=== PATIENT | male | born 1975 | race Caucasian/White ===

== ENCOUNTER 2016-12-29 18:09 | Emergency (ER) | payer MEDICARE, OTHER ==
[~2016-12-29] VITALS: Ht 180.3 cm; Wt 106.6 kg
[~2016-12-29 18:09] MED LIST: ATOR40TA PO; LORTA5 PO; ZOFR4TAB3 SL
[2016-12-29] MEDS ORDERED: SIMV20TA PO (18:37)
[2016-12-29 18:38] VITALS: BP 156/67; PULSE 85; RESP 18; TEMP 99.2; O2SAT 97
[2016-12-29 19:00] VITALS: BP 128/78; PULSE 65; RESP 20; O2SAT 95
[2016-12-29] MEDS ORDERED: MORPHINE SULFATE 4 MG/ML INJ IV PUSH ONE (19:15)
[2016-12-29] MEDS ORDERED: ONDANSETRON HCL 4 MG/2 ML VIAL IV PUSH ONE (19:15)
[2016-12-29] MEDS ORDERED: SODIUM CHLORIDE 0.9% FLUSH 10 ML FLUSH IVF PRN (19:15)
[2016-12-29 19:45] LABS: AUTOMATED NEUTROPHIL # 4.4 TH/MM3 (1.8-7.7); BASOPHIL % 0.4 % (0.0-2.0); EOSINOPHIL # 0.2 TH/MM3 (0-0.4); HEMATOCRIT 38.3 % (39.0-51.0); HEMO FLAGS DIFF FINAL; LYMPH % 28.3 % (9.0-44.0); LYMPHOCYTE # 2.2 TH/MM3 (1.0-4.8); MEAN CELL VOLUME 89.7 FL (80.0-100.0); MEAN CORPUSCULAR HEMOGLOBIN 31.6 PG (27.0-34.0); MEAN CORPUSCULAR HGB CONC 35.3 % (32.0-36.0); MONO % 11.1 % (0.0-8.0); NEUT % 57.2 % (16.0-70.0); PLATELET COUNT 207 TH/MM3 (150-450); RED BLOOD COUNT 4.27 MIL/MM3 (4.50-5.90); RED CELL DISTRIBUTION WIDTH 12.7 % (11.6-17.2); WHITE BLOOD COUNT 7.6 TH/MM3 (4.0-11.0)
--- NOTE | 2016-12-29 19:45 | PD ---
HPI Chief Complaint: Complaint Time Seen by Provider: 19:15 Travel History International Travel<30 days: No Contact w/Intl Traveler<30days: No Traveled to known affect area: No History of Present Illness HPI 41-year-old male presents to the emergency department the care of his spouse for complaint of increasing right groin and testicular pain. Patient states on Thursday he did some minor straining and lifting but did not notice specific injury also did fill up slight pull in the right lower quadrant groin area. Patient is not noticed any swelling to the area. Patient's had no dysuria frequency urgency or penile discharge. Patient has noticed increasing pain affecting the right testicle. Patient has had episodes of nausea but denies any vomiting. Patient denies any previous history of groin strain hernia or testicular issues also no reported history of urethritis or epididymitis. Patient rates pain as severe. Patient has used [id number] medications without relief. Patient denies any chronic medical conditions other than dyslipidemia for which she is prescribed simvastatin. Patient is unable to identify exacerbating or alleviating factors. PFSH Past Medical History Narrative Medical Dyslipidemia; alcohol use: Nursing notes reviewed High Cholesterol: Yes Diminished Hearing: No Immunizations Current: Yes Triglycerides - High: Yes Influenza Vaccination: Yes Social History Alcohol Use: Yes Tobacco Use: No Substance Use: No Allergies-Medications (Allergen,Severity, Reaction): Coded Allergies: No Known Allergies (Unverified , 04/09/15) Reported Meds & Prescriptions Reported Meds & Active Scripts Active Zofran Odt (Ondansetron Odt) 4 Mg Tab 4 Mg SL Q6HR PRN Lortab (Hydrocodone-Acetaminophen) 7.5-325 Mg Tab 1 Tab PO Q6H PRN Ibuprofen 800 Mg Tab 800 Mg PO Q8H PRN Reported Simvastatin 20 Mg Tab 20 Mg PO DAILY Review of Systems Except as stated in HPI: all other systems reviewed are Neg General / Constitutional: No: Fever, Chills Eyes: No: Visual changes HENT: No: Headaches Cardiovascular: No: Chest Pain or Discomfort Respiratory: No: Shortness of Breath Gastrointestinal: Positive: Nausea, Abdominal Pain (right lower quadrant) Genitourinary: Positive: Other (groin/testicular pain), No: Dysuria, Discharge Musculoskeletal: Positive: Pain, No: Myalgias, Arthralgias Skin: No Rash (right groin) Neurologic: No: Weakness Psychiatric: No: Anxiety Hematologic/Lymphatic: No: Lymph Node Enlargement Physical Exam Narrative GENERAL: Well-developed well-nourished male in no acute distress no respiratory distress SKIN: Warm and dry. HEAD: Normocephalic. EYES: No scleral icterus. No injection or drainage. NECK: Supple, trachea midline. No JVD or lymphadenopathy. CARDIOVASCULAR: Regular rate and rhythm without murmurs, gallops, or rubs. RESPIRATORY: Breath sounds equal bilaterally. No accessory muscle use. GASTROINTESTINAL: Abdomen soft, non-tender, nondistended. : Circumcised male bilaterally descended testicles right testicle slightly higher than left testicle with cremasteric reflex present marked tenderness to palpation of the right testicle and on hernia exam no evidence of inguinal hernia. No discharge at urethral meatus. No scrotal edema. No induration no erythema. MUSCULOSKELETAL: No cyanosis, or edema. BACK: Nontender without obvious deformity. No CVA tenderness. Data Data Last Documented VS Orders Orders Basic Metabolic Panel (Bmp) (12/29/16 19:15) Complete Blood Count With Diff (12/29/16 19:15) Ua Includes Microscopic (12/29/16 19:15) Us Testicles W Doppler (12/29/16 19:15) Sodium Chloride 0.9% Flush (Ns Flush) (12/29/16 19:15) NPO (12/29/16 19:15) Ondansetron Inj (Zofran Inj) (12/29/16 19:15) Morphine Inj (Morphine Inj) (12/29/16 19:15) Ketorolac Inj (Toradol Inj) (12/29/16 21:45) Ct Abd/Pel W/O Iv Contrast (12/29/16 ) Sodium Chlor 0.9% 1000 Ml Inj (Ns 1000 M (12/29/16 22:00) Labs Laboratory Tests Test 12/29/16 19:28 12/29/16 19:42 White Blood Count 7.6 TH/MM3 Red Blood Count 4.27 MIL/MM3 Hemoglobin 13.5 GM/DL Hematocrit 38.3 % Mean Corpuscular Volume 89.7 FL Mean Corpuscular Hemoglobin 31.6 PG Mean Corpuscular Hemoglobin Concent 35.3 % Red Cell Distribution Width 12.7 % Platelet Count 207 TH/MM3 Mean Platelet Volume 7.8 FL Neutrophils (%) (Auto) 57.2 % Lymphocytes (%) (Auto) 28.3 % Monocytes (%) (Auto) 11.1 % Eosinophils (%) (Auto) 3.0 % Basophils (%) (Auto) 0.4 % Neutrophils # (Auto) 4.4 TH/MM3 Lymphocytes # (Auto) 2.2 TH/MM3 Monocytes # (Auto) 0.8 TH/MM3 Eosinophils # (Auto) 0.2 TH/MM3 Basophils # (Auto) 0.0 TH/MM3 CBC Comment DIFF FINAL Differential Comment Blood Urea Nitrogen 22 MG/DL Creatinine 1.10 MG/DL Random Glucose 76 MG/DL Calcium Level 8.8 MG/DL Sodium Level 141 MEQ/L Potassium Level 3.9 MEQ/L Chloride Level 107 MEQ/L Carbon Dioxide Level 26.5 MEQ/L Anion Gap 8 MEQ/L Estimat Glomerular Filtration Rate 74 ML/MIN Urine Color YELLOW Urine Turbidity CLEAR Urine pH 6.0 Urine Specific [place] 1.030 Urine Protein NEG mg/dL Urine Glucose (UA) NEG mg/dL Urine Ketones NEG mg/dL Urine Occult Blood NEG Urine Nitrite NEG Urine Bilirubin NEG Urine Leukocyte Esterase NEG Urine Squamous Epithelial Cells 0-5 /hpf Microscopic Urinalysis Comment CULT NOT INDICATED MDM Medical Decision Making Medical Screen Exam Complete: Yes Emergency Medical Condition: Yes Medical Record Reviewed: Yes Interpretation(s) UA: wnl Last Impressions Scrotum Ultrasound 12/29/16 191 Signed Impressions: Service Date/Time: Thursday, December 29, 2016 20:01 - CONCLUSION: 1. Normal blood flow seen to the testicles bilaterally. 2. Plantar area of decreased echogenicity at the posterior mid right chest along the horizontal axis likely related to a prominent rete testes. It is thought this could be followed. 3. Minimal hydroceles. 4. Mild left varicocele. Jass Montaño MD Abdomen/Pelvis CT 12/29/16 0000 Signed Impressions: Service Date/Time: Thursday, December 29, 2016 22:12 - CONCLUSION: No acute disease. Jass Montaño MD CBC & BMP Diagram 12/29/16 19:28 Calcium Level 8.8 Differential Diagnosis Testicular torsion intermittent testicular torsion epididymoorchitis hernia urethritis renal colic UTI appendicitis Narrative Course IV access obtained specimens collected. Manual detorsion performed patient administered Zofran and morphine sulfate stat urology consult placed and stat US ordered if unable to get ultrasound stat transfer to [facility] Patient with some improvement of symptoms although continues to complain of right testicular pain on reexamination patient appears to have more symmetrical high of right to left testicle Patient's case discussed with on-call urologist who states that he is to be called back with ultrasound results Patient reassessed pain is improved after pain medication and on reexamination cremasteric reflex is clearly presents Patient and provide a urine specimen urinalysis is normal Ultrasound for reveals good bilateral blood flow to both testicles patient does have small hydrocele and varicocele; results called stat to urologist who would like to see patient in office tomorrow Due to persistent right groin pain with less complaint of right testicular pain CT kidney stone protocol ordered without acute abnormality identified She notes pain markedly improved after Toradol; rates pain as 2/10 "some soreness" Patient is stable for outpatient management and close follow-up with urologist 1 day and to return to emergency department immediately for any recurrence of symptoms. Physician Communication Physician Communication discussed with Dr Lara telecommunication equipment repairer urology Diagnosis Primary Impression: Testicular pain, right Additional Impression: Varicocele Referrals: Luiz aLra MD 1 day Urologist telecommunication equipment repairer Dr Lara Patient Instructions: General Instructions, Narcotic given in the ED Additional Instructions: Follow-up with urologist Dr. Lara times one day Take medications as prescribed as needed Return immediately to the emergency department for recurrent pain or any concerns No work times one day Med/Other Pt SpecificInfo: Prescription(s) given Scripts Ondansetron Odt (Zofran Odt) 4 Mg Tab 4 MG SL Q6HR Y for Nausea/Vomiting, #10 TAB 0 Refills Prov: Kimberly Jiménez MD 12/29/16 Hydrocodone-Acetaminophen (Lortab) 7.5-325 Mg Tab 1 TAB PO Q6H Y for PAIN, #7 TAB 0 Refills Prov: Kimberly Jiménez MD 12/29/16 Ibuprofen (Ibuprofen) 800 Mg Tab 800 MG PO Q8H Y for PAIN GREATER THAN 5, #12 TAB 0 Refills Prov: Kimberly Jiménez MD 12/29/16 Kimberly Jiménez MD Dec 29, 2016 19:45
[2016-12-29 19:51] LABS: BLOOD, URINE NEG (NEG); GLUCOSE,URINE NEG (NEG); KETONE, URINE NEG (NEG); NITRITE,URINE NEG (NEG)
[2016-12-29 19:54] LABS: URINE COLOR YELLOW (YELLW/STRAW)
[2016-12-29 19:55] LABS: POTASSIUM 3.9 MEQ/L (3.5-5.1)
[2016-12-29 19:55] LABS: SQUAMOUS EPITHELIAL CELL URINE 0-5 /hpf (0-5)
[2016-12-29 19:56] LABS: COMMENT (UR) CULT NOT INDICATED
[2016-12-29 19:58] LABS: BICARBONATE 26.5 MEQ/L (21.0-32.0)
--- NOTE | 2016-12-29 21:26 | RADRPT ---
EXAM DATE/TIME: 12/29/2016 20:01 [facility] COMPARISON: No previous studies available for comparison. INDICATIONS : Testicular pain. MEDICAL HISTORY : Hypercholesterolemia. Hyperlipidemia. Testicle pain. SURGICAL HISTORY : None. ENCOUNTER: Initial ACUITY: 1 day PAIN SCORE: 8/10 LOCATION: Bilateral testicles. MEASUREMENTS: RIGHT TESTICLE: 5.0 x 3.7 x 2.8cm FLOW: Yes LEFT TESTICLE: 4.9 x 3.9 x 2.6cm FINDINGS: RIGHT TESTICLE: Homogeneous echotexture without intra or extratesticular mass. There is a plantar area of hypoechoge nicity seen at the posterior mid right testicle along the horizontal axis likely related to the rete testes. Blood flow is symmetric and within normal limits. There is a minimal hydrocele. No varicocel e is seen. The epididymis is not well-visualized. It is certainly not enlarged. LEFT TESTICLE: Homogeneous echotexture without intra or extratesticular mass. Blood flow is symmetric and within no rmal limits. There is a minimal hydrocele. There is a mild varicocele. The epididymis is normal in size. There is a 3 mm cyst at the epididymal head. SCROTUM: Within normal limits. CONCLUSION: 1. Normal blood flow seen to the testicles bilaterally. 2. Plantar area of decreased echogenicity at the posterior mid right chest along the horizontal axis likely related to a prominent rete testes. It is thought this could be followed. 3. Minimal hydroceles. 4. Mild left varicocele. Jass Montaño MD on December 29, 2016 at 21:20 Board Certified Radiologist. This report was verified electronically.
[2016-12-29 21:30] VITALS: BP 117/76; PULSE 63; RESP 18
[2016-12-29] MEDS ORDERED: KETOROLAC TROMETHAMINE 30 MG/ML (IVP) VIAL IV PUSH ONE (21:45)
[2016-12-29] MEDS ORDERED: SODIUM CHLOR 0.9% 1000 ML INJ 1,000 ML IV ONE (22:00)
--- NOTE | 2016-12-29 22:57 | RADRPT ---
EXAM DATE/TIME: 12/29/2016 22:12 [facility] COMPARISON: CT ABDOMEN & PELVIS W/O CONTRAST, April 09, 2015, 21:41. INDICATIONS : Right groin and testicle pain. ORAL CONTRAST: No oral contrast ingested. RADIATION DOSE: 19.66 CTDIvol (mGy) MEDICAL HISTORY : None SURGICAL HISTORY : vasectomy ENCOUNTER: Initial ACUITY: 1 day PAIN SCALE: 10/10 LOCATION: Right groin TECHNIQUE: Volumetric scanning of the abdomen and pelvis was performed. Using automated exposure control and ad justment of the mA and/or kV according to patient size, radiation dose was kept as low as reasonably achievable to obtain optimal diagnostic quality images. DICOM format image data is available electro nically for review and comparison. FINDINGS: LOWER LUNGS: The visualized lower lungs are clear. LIVER: Homogeneous density without lesion. There is no dilation of the biliary tree. No calcified gallston es. SPLEEN: Normal size without lesion. PANCREAS: Within normal limits. KIDNEYS: Normal in size and shape. There is no mass, stone, or hydronephrosis. ADRENAL GLANDS: Within normal limits. VASCULAR: There is no aortic aneurysm. BOWEL/MESENTERY: The stomach, small bowel, and colon demonstrate no acute abnormality. There is no free intraperitone al air or fluid. The appendix appears normal. ABDOMINAL WALL: Within normal limits. RETROPERITONEUM: There is no lymphadenopathy. BLADDER: No wall thickening or mass. REPRODUCTIVE: Within normal limits. Clips are seen in the upper scrotal regions likely from prior vasectomy. INGUINAL: There is no lymphadenopathy or hernia. MUSCULOSKELETAL: Within normal limits for patient age. CONCLUSION: No acute disease. Jass Montaño MD on December 29, 2016 at 22:53 Board Certified Radiologist. This report was verified electronically.
[2016-12-29] MEDS ORDERED: HYDR-3534 PO (23:23)
[2016-12-29] MEDS ORDERED: IBUP800T23 PO (23:23)
[2016-12-29] MEDS ORDERED: ZOFR4TAB3 SL (23:24)
[2016-12-29 23:55] VITALS: BP 122/75
== END 2016-12-30 00:08 | disposition home or self-care (01) ==
LOC: PHED 18:09
DX: I86.1 Scrotal varices (principal); E78.00 Pure hypercholesterolemia, unspecified
CPT/HCPCS: 74176; 76870; 80048; 81001; 85025; 93975; 96361; 96374; 96375; 99285; J1885; J2270; J2405; J7030